=== PATIENT | female | born 1960 | race African-American/Black ===

== ENCOUNTER 2019-03-03 11:06 | Emergency (ER) | payer MEDICAID ==
[~2019-03-03] VITALS: Ht 157.5 cm; Wt 87.1 kg
[2019-03-03 11:12] VITALS: BP 159/95
== END 2019-03-03 14:04 | disposition home or self-care (01) ==
LOC: ED 12:13
DX: S83.92XA Sprain of unspecified site of left knee, initial encounter (principal); I10 Essential (primary) hypertension; X58.XXXA Exposure to other specified factors, initial encounter; Y93.89 Activity, other specified; Y92.89 Other specified places as the place of occurrence of the external cause; Y99.8 Other external cause status
CPT/HCPCS: 29530; 99284